=== PATIENT | male | born 1990 | race Caucasian/White ===

== ENCOUNTER 2017-12-27 14:10 | Emergency (ER) | payer OTHER ==
[~2017-12-27] VITALS: Ht 172.7 cm; Wt 68.0 kg
[2017-12-27 14:28] VITALS: BP 116/77
--- NOTE | 2017-12-27 14:45 | NUR ---
Used photographer motion picture Rosa Maria reference number #[id number]. 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 Swelling and discoloration noted to anterior right hand. Limited ROM to all digits of right hand. Cap refill < 3 seconds and Pulses +2 to right hand. Patient is aox4 to person, place, situation, and tiem. RR are even and unlabored. NAD. VSS. Positioned to comfort. ALl needs met at this time. Will continue to monitor.
[2017-12-27] MEDS ORDERED: IBUPROFEN 600 MG TAB PO ONE (15:05)
--- NOTE | 2017-12-27 16:02 | NUR ---
VERBAL ORDER GIVEN BY PHYSICIAN Lorrie ANGUIANO FOR A ALONDRA WRAP ON THE RIGHT WRIST AND HAND. DONE WITH A ALONDRA WRAP 3. [facility]MSCs INTACT BEFORE AND AFTER APPLICATION.
[2017-12-27 16:05] VITALS: BP 119/75
--- NOTE | 2017-12-27 16:05 | NUR ---
Used grocery specialist Rosa Maria reference number #[id number]. Patient discharged with v/s stable. Written and verbal after care instructions given and explained. Patient alert, oriented and verbalized understanding of instructions. Ambulatory with steady gait. All questions addressed prior to discharge. ID band removed. Patient advised to follow up with PMD. Rx of Ibuprofen given. Patient educated on indication of medication including possible reaction and side effects. Opportunity to ask questions provided and answered.
== END 2017-12-27 16:05 | disposition home or self-care (01) ==
LOC: MED 14:10
DX: S60.221A Contusion of right hand, initial encounter (principal); W22.01XA Walked into wall, initial encounter; Y93.89 Activity, other specified; Y92.89 Other specified places as the place of occurrence of the external cause; Y99.8 Other external cause status
CPT/HCPCS: 73130; 99284; Q0092